=== PATIENT | female | born 1965 | race Caucasian/White ===

== ENCOUNTER 2017-11-06 04:28 | Emergency (ER) | payer SELFPAY ==
[~2017-11-06] VITALS: Ht 157.5 cm; Wt 90.2 kg
[2017-11-06] MEDS ORDERED: KETOROLAC 30 MG/ML VIAL. IV ONE (05:00)
[2017-11-06] MEDS ORDERED: METOCLOPRAMIDE HCL 10 MG/2 ML VIAL. IV ONE (05:00)
[2017-11-06] MEDS ORDERED: diphenhydrAMINE 50 MG/ML VIAL IVP ONE (05:00)
[2017-11-06] MEDS ORDERED: IV NORMAL SALINE 1,000ML 1,000 ML IV ONE (05:00)
--- NOTE | 2017-11-06 05:10 | PHYS DOC ---
Adult General Chief Complaint Chief Complaint: NAUSEA/VOMITING/DIARRHEA HPI HPI 52-year-old female presents with 3 day history of nausea, and general malaise. The patient has had daily nausea that gets worse throughout the day for the last 3 days. Toward the end of the day, she is unable to keep down any solids or liquids. In the mornings, she seems to be able to keep things down. Patient has a history of GERD for which she only takes Tums. She has been feeling tired and worn out the last 3 days. She denies cough, congestion. She has had an intermittent headache and presents to the ER with a headache at this time. She took Excedrin which did not help. Patient has had menstrual bleeding for a month. The volume of bleeding is variable each day. Prior to this, she has been very regular. She has not seen an [employer]S TECHNICIAN because she just moved back to this area. She denies dysuria, urinary frequency, fever or chills. Review of Systems Review of Systems Constitutional: Denies fever or chills [] Eyes: Denies change in visual acuity, redness, or eye pain [] HENT: Denies nasal congestion or sore throat [] Respiratory: Denies cough or shortness of breath [] Cardiovascular: No additional information not addressed in HPI [] GI: Diffuse abdominal pain, nausea, vomiting[] : Denies dysuria or hematuria [] Musculoskeletal: Denies back pain or joint pain [] Integument: Denies rash or skin lesions [] Neurologic: Has headache. Denies focal weakness or sensory changes [] Endocrine: Denies polyuria or polydipsia [] All other systems were reviewed and found to be within normal limits, except as documented in this note. Current Medications Current Medications Current Medications Medications (Trade) Dose Ordered Sig/Morris Start Time Stop Time Status Last Admin Dose Admin Diphenhydramine HCl (Benadryl) 25 mg 1X ONCE 11/06/17 05:00 11/06/17 05:05 DC Ketorolac Tromethamine (Toradol 30mg Vial) 30 mg 1X ONCE 11/06/17 05:00 11/06/17 05:05 DC Metoclopramide HCl (Reglan Vial) 10 mg 1X ONCE 11/06/17 05:00 11/06/17 05:05 DC Sodium Chloride 1,000 ml @ 1,000 mls/hr 1X ONCE 11/06/17 05:00 11/06/17 05:59 Allergies Allergies Allergies Coded Allergies Type Severity Reaction Last Updated Verified erythromycin base Allergy Unknown 11/06/17 Yes sulfamethoxazole Allergy Unknown 11/06/17 Yes tetracycline Allergy Unknown 11/06/17 Yes trimethoprim Allergy Unknown 11/06/17 Yes Uncoded Allergies Type Severity Reaction Last Updated Verified penicillin Allergy Unknown 11/06/17 sulfa Allergy Unknown 11/06/17 Physical Exam Physical Exam Constitutional: Well developed, well nourished, no acute distress, non-toxic appearance. [] HENT: Normocephalic, atraumatic, bilateral external ears normal, oropharynx moist, no oral exudates, nose normal. [] Eyes: PERRLA, EOMI, conjunctiva normal, no discharge. [] Neck: Normal range of motion, no tenderness, supple, no stridor. [] Cardiovascular:Heart rate regular rhythm, no murmur [] Lungs & Thorax: Bilateral breath sounds clear to auscultation [] Abdomen: Bowel sounds normal, soft, mild diffuse tenderness, no masses, no pulsatile masses. [] Skin: Warm, dry, no erythema, no rash. [] Back: No tenderness, no CVA tenderness. [] Extremities: No tenderness, no cyanosis, no clubbing, ROM intact, no edema. [] Neurologic: Alert and oriented X 3, normal motor function, normal sensory function, no focal deficits noted. [] Psychologic: Affect normal, judgement normal, mood normal. [] Current Patient Data Lab Results Laboratory Tests Test 11/06/17 04:10 POC Urine HCG, Qualitative hcg negative (Negative) EKG EKG [] Radiology/Procedures Radiology/Procedures [] Course & Med Decision Making Course & Med Decision Making Pertinent Labs and Imaging studies reviewed. (See chart for details) Based on the patient's history, I believe she has uncontrolled GERD. I will give her Pepcid in the ED and a prescription for Protonix 40mg daily for 1 month to see if this helps with her GERD symptoms. She will follow up with her primary physician for further treatment as necessary. For her headache I will give 1 L normal saline, 30 mg Toradol, 25 mg Benadryl, 10 mg Reglan. Labs are pending. The patient's labs are unremarkable. She is not anemic. Her urinalysis is negative. She is not . Given her nausea and vomiting, I will additionally provided prescription for Zofran ODT at discharge. I expect the patient's headache will improve with the current treatment. It will take some time for it to take effect. I will turn over final discharge decision to my colleague Dr. Nelson at 0600. [] Dragon Disclaimer Dragon Disclaimer This electronic medical record was generated, in whole or in part, using a voice recognition dictation system. Departure Departure: Referrals: PCP,NO (PCP) Scripts Pantoprazole Sodium (PROTONIX) 40 Mg Tablet.dr 1 TAB PO DAILY for 30 Days, #30 TAB 0 Refills Prov: KARUNA PUENTES DO 11/06/17 Ondansetron (ZOFRAN ODT) 4 Mg Tab.rapdis 1 TAB SL Q8HRS PRN for NAUSEA/VOMITING, #15 TAB Prov: KARUNA PUENTES DO 11/06/17 Assessment/Plan Assessment/Plan 52 yo F still in the department at time of sign out at 6AM. Plan was to discharge after medications took effect and pt was feeling better. Pt reported feeling better and nurse discharged pt. I did not see this patient. Care directed by Dr. Puentes. There were no labs or imaging studies pending at the time of sign out. KARUNA PUENTES DO Nov 06, 2017 05:10 CLAUDIA NELSON MD Nov 06, 2017 07:02
[2017-11-06 05:34] LABS: BASO % 0 % (0-3); EOS # 0.2 x10^3/uL (0.0-0.7); EOS % 2 % (0-3); HEMATOCRIT 39.9 % (36.0-47.0); HEMOGLOBIN 13.6 g/dL (12.0-15.5); LYMPH # 2.3 x10^3/uL (1.0-4.8); LYMPH % 22 % (24-48); MEAN CORPUSCULAR HEMOGLOBIN 31 pg (25-35); MEAN CORPUSCULAR HGB CONC 34 g/dL (31-37); MEAN CORPUSCULAR VOLUME 90 fL (79-100); MONO # 0.9 x10^3/uL (0.0-1.1); MONO % 8 % (0-9); NEUT # 7.3 x10^3uL (1.8-7.7); NEUT % 68 % (31-73); PLATELET COUNT 325 x10^3/uL (140-400); RED BLOOD COUNT 4.44 x10^6/uL (3.50-5.40); RED CELL DISTRIBUTION WIDTH 13.4 % (11.5-14.5); WHITE BLOOD COUNT 10.8 x10^3/uL (4.0-11.0)
[2017-11-06] MEDS ORDERED: PANT40TA3 PO (05:37)
[2017-11-06] MEDS ORDERED: ONDA4TAB10 SL (05:37)
[2017-11-06 05:39] LABS: BILIRUBIN,URINE NEG (NEG); CLARITY,URINE CLEAR; COLOR,URINE YELLOW; GLUCOSE,URINE NEG (NEG)
[2017-11-06 05:40] LABS: BACTERIA,URINE 0 /HPF (0-FEW); NITRITE,URINE NEG (NEG); SQUAMOUS EPITHELIAL CELL,UR FEW /LPF; UROBILINOGEN,URINE 0.2 mg/dL (0.2 mg/dL); WBC,URINE OCC /HPF (0-4)
[2017-11-06] MEDS ORDERED: FAMOTIDINE 20 MG/2 ML VIAL IVP ONE (05:45)
[2017-11-06 05:48] LABS: ALBUMIN/GLOBULIN RATIO 0.9 (1.0-1.7); CALCIUM 8.2 mg/dL (8.5-10.1); CREATININE 0.8 mg/dL (0.6-1.0); GFR 75.9; POTASSIUM 4.1 mmol/L (3.5-5.1); TOTAL BILIRUBIN 0.3 mg/dL (0.2-1.0); TOTAL PROTEIN 6.3 g/dL (6.4-8.2)
[2017-11-06 06:50] VITALS: BP 130/50
== END 2017-11-06 07:00 | disposition home or self-care (01) ==
LOC: ER 04:28
DX: R11.2 Nausea with vomiting, unspecified (principal); R10.84 Generalized abdominal pain; R51 Headache; K21.9 Gastro-esophageal reflux disease without esophagitis; R53.81 Other malaise; Z88.1 Allergy status to other antibiotic agents; Z88.2 Allergy status to sulfonamides
CPT/HCPCS: 36415; 80053; 81001; 81025; 85025; 96361; 96374; 96375; 99284; J1200; J1885; J2765; S0028; J7030